=== PATIENT | female | born 1975 | race Caucasian/White ===

== ENCOUNTER 2020-05-09 08:45 | Emergency (ER) | payer BC, OTHER, SELFPAY ==
--- NOTE | 2020-05-09 08:47 | ED.URI ---
HPI - URI/Sore Throat General Chief Complaint: Upper Respiratory Infection Stated Complaint: sore throat Time Seen by Provider: 05/09/20 08:59 Source: patient and RN notes reviewed Mode of arrival: ambulatory Limitations: no limitations History of Present Illness HPI Narrative: 43-year-old female presents with concern for sore throat that started yesterday. Reports sore throat started yesterday, today she noticed tonsils were more swollen with white patches. She denies fever, headache, body aches, rhinorrhea, nasal congestion, postnasal drainage, cough, shortness of breath. Denies any sick contacts MD elicited complaint: sore throat Related Data Home Medications Medication Instructions Recorded Confirmed No Home Medications 05/09/20 05/09/20 Allergies Allergy/AdvReac Type Severity Reaction Status Date / Time amoxicillin Allergy Mild Hives Verified 05/09/20 08:59 Review of Systems Review of Systems: Narrative: CONSTITUTIONAL: Denies malaise, chills, sweats, or fever. EYES: Denies visual changes, redness, or discharge. ENT: Denies rhinorrhea, congestion, sinus pain, otalgia. Reports sore throat. CARDIOVASCULAR: Denies chest pain, palpitations, or edema. RESPIRATORY: Denies cough or dyspnea. GASTROINTESTINAL: Denies abdominal pain, nausea, vomiting, diarrhea SKIN: Denies rash or itching. MUSCULOSKELETAL: Denies myalgia. NEUROLOGIC: Denies headache. All systems reviewed & are unremarkable except as noted in HPI and below PMFSH Comments At time of signature, agree with nursing past medical, surgical, social and family history. There is no relevant family history pertinent to the presenting complaint Exam Narrative: Exam Narrative: GENERAL: Well-appearing, well-nourished, and in no acute distress. HEAD: Normocephalic EYES: PERRLA, conjunctivae clear ENT: Nares clear, turbinates pink, no discharge. Mucous membranes moist. TM pearly leger with dull light reflex bilaterally; no tragal tenderness. Oropharynx erythematous without lesions. Tonsils enlarged and with copious exudate, no drooling, no hoarseness, no trismus, uvula midline. NECK: Supple. No lymphadenopathy CHEST: Clear to auscultation, breath sounds equal. No wheezing, rhonchi, rales, or stridor. No respiratory distress, speaks in full sentences. HEART: Regular rate and rhythm. No murmur heard. SKIN: Warm, dry, no rash. NEURO: Alert and oriented x3. PSYCH: Normal mood and affect Course Course Emergency Course: Patient is aware of diagnosis, understands and agrees to treatment plan. Anticipatory guidance given. Patient agrees to follow-up as directed and is aware of reasons to seek care at the emergency department. Portions of this record may have been created with voice recognition software Vital Signs Vital signs: Vital Signs Temperature 97.9 F 05/09/20 08:57 Pulse Rate 92 05/09/20 08:57 Respiratory Rate 16 05/09/20 08:57 Blood Pressure 124/72 05/09/20 08:57 Pulse Oximetry 99 05/09/20 08:57 Temperature 97.9 F 05/09/20 08:57 Pulse Rate 92 05/09/20 08:57 Respiratory Rate 16 05/09/20 08:57 Blood Pressure 124/72 05/09/20 08:57 Pulse Oximetry 99 05/09/20 08:57 Reviewed. MDM - URI/Sore Throat MDM Narrative Medical decision making narrative: Differential diagnosis considered: Cota virus, strep pharyngitis, allergic rhinitis, upper respiratory tract infection, sinusitis, rhinosinusitis, nasopharyngitis. viral pharyngitis, otitis media, otitis externa, pneumonia, bronchitis, viral cough syndrome, viral syndrome, and influenza. Exam findings show no acute concerns or changes; patient is non-toxic appearing and is in no distress. Patient is appropriate for outpatient treatment and follow-up. Lab Data Attestation: I reviewed the patient's lab results. Labs: Strep Screen Presumptive Negative *(Reference Range: Negative)* Critical Care Time Critical Care Time Critical Care Time: No Discharge P
[2020-05-09 08:57] VITALS: BP 124/72; PULSE 92; RESP 16; TEMP 36.6; O2SAT 99
== END 2020-05-09 09:36 | disposition home or self-care (01) ==
PROVIDERS: Emergency Provider Nurse Practitioner; PCP Family Medicine Adolescent Medicine
DX: J03.90 Acute tonsillitis, unspecified (principal)
CPT/HCPCS: 87081; 87147; 87880; 99213; G0463

== ENCOUNTER 2020-09-07 11:55 | Inpatient (IN) | payer BC, OTHER, SELFPAY ==
[2020-09-07] VITALS (24 sets, daily range): BP systolic 104–119; BP diastolic 59–70; PULSE 73–110; RESP 18–35; TEMP 35.7–36.5; O2SAT 90–99
--- NOTE | ~2020-09-07 | CT_ITS ---
EXAMINATION: CTA chest PE protocol EXAM DATE: 09/07/2020 13:27 INDICATION: Shortness of breath, hemoptysis. COVID positive. TECHNIQUE: Spiral CTA of the chest (pulmonary arteries) was performed with 100 cc Omnipaque 350 intr avenous contrast injection. Images were acquired during the pulmonary arterial phase. Coronal maxi mum intensity projection 3D-reconstructions were created by the technologist on dedicated workstation . Axial, coronal and sagittal reformatted images were reviewed. The dose-length product (DLP) for t his examination was 421.80 mGy-cm. The exposure was tailored according to patient size (auto mA exp osure control), and iterative reconstruction (ASIR) was used as additional dose reduction technique. There is no prior study for comparison. FINDINGS: Pulmonary arteries are well opacified and without intraluminal filling defects. No thora cic aortic dissection. Moderate amount of patchy ill-defined bilateral acute airspace disease, appea navya is consistent with COVID 19 pneumonia. There are no pleural or pericardial effusions. Trache obronchial tree is patent. There is no mediastinal, hilar or axillary lymphadenopathy. There is n o pneumothorax. Heart normal in size. No evidence of coronary arterial calcification. Upper abdo men is unremarkable. There is thoracic spondylosis without osteoblastic or osteolytic lesions ident ified. IMPRESSION: 1. Moderate amount of bilateral acute airspace disease appearance consistent with COVID pneumonia. 2. No pulmonary emboli. Reviewed, dictated and finalized at location B. IT[employer]ER IMPRESSION: 1. Moderate amount of bilateral acute airspace disease appearance consistent w ith COVID pneumonia. 2. No pulmonary emboli.
--- NOTE | 2020-09-07 12:31 | ECG_ITS ---
Measurements Intervals [place] Rate: 100 P: 16 MI: 148 QRS: -15 QRSD: 87 T: -9 QT: 313 QTc: 404 Interpretive Statements SINUS TACHYCARDIA DELAYED PRECORDIAL R/S TRANSITION VOLTAGE CRITERIA FOR LVH BORDERLINE T WAVE ABNORMALITY- ANTEROLAT/INF LEADS BORDERLINE ECG Electronically Signed On 09-07-2020 13:02:08 DEFENSIVE SECONDARY COACH by Sagar Sapp D.O.
--- NOTE | 2020-09-07 12:31 | ED.SOB ---
HPI - SOB/Dyspnea General Chief Complaint: Shortness of Breath/Dyspnea Stated Complaint: covid/cough Time Seen by Provider: 09/07/20 12:25 Source: patient Mode of arrival: ambulatory Limitations: no limitations History of Present Illness HPI Narrative: Patient is a 44-year-old female complaining of coughing up blood accompanied by shortness of breath, subjective fever, body aches for the past couple days. patient states that she tested positive for Covid on September 04. Patient denies any hematemesis, melena, hematochezia or hematuria. Patient denies any chest pain, abdominal pain, nausea, vomiting, or diarrhea. Related Data Home Medications Medication Instructions Recorded Confirmed levofloxacin [Levaquin] 500 mg PO DAILY 09/07/20 Allergies Allergy/AdvReac Type Severity Reaction Status Date / Time amoxicillin Allergy Mild Hives Verified 09/07/20 12:25 Review of Systems Review of Systems: All systems reviewed & are unremarkable except as noted in HPI and below Constitutional: Constitutional: Denies excessive sweating, Denies fatigue, Denies headache(s), Denies lethargy, Denies malaise, Denies weakness and Denies weight loss Eyes: Eyes: Denies blurry vision, Denies change in vision and Denies loss of vision ENT: Denies dizziness, Denies ear discharge, Denies headache(s), Denies lip swelling, Denies epistaxis, Denies nasal congestion, Denies neck pain, Denies throat swelling and Denies tongue swelling Cardiovascular: Cardiovascular: Denies chest pain, Denies chest pain at rest, Denies chest pain with activity, Denies diaphoresis, Denies rapid heart rate, Denies edema, Denies irregular heart rhythm, Denies lightheadedness, Denies palpitations, Denies dyspnea and Denies dyspnea on exertion Respiratory: Respiratory: Denies chest congestion, Reports dyspnea and Denies dyspnea on exertion Gastrointestinal: Gastrointestinal: Denies abdominal pain, Denies melena, Denies hematochezia, Denies diarrhea, Denies nausea, Denies vomiting and Denies hematemesis Musculoskeletal: Musculoskeletal: Denies abnormal gait, Denies deformity, Denies joint swelling, Denies limited range of motion, Denies neck pain and Denies numbness Neurologic: Denies Abnormal speech present, Denies abnormal gait, Denies confusion, Denies dizziness, Denies headache(s), Denies focal weakness, Denies loss of vision, Denies numbness, Denies Other visual disturbances, Denies Sensory deficit (Neuro) and Denies weakness Psychiatric: Psychiatric: Denies confusion, Denies depression, Denies auditory hallucinations, Denies homicidal ideation and Denies suicidal ideation Endocrine: Endocrine: Denies cold intolerance, Denies excessive sweating, Denies fatigue, Denies heat intolerance and Denies palpitations Hematologic/Lymphatic: Hematologic/Lymphatic: Denies easy bleeding and Denies easy bruising Allergic/Immunologic: Allergic/Immunologic: Denies lip swelling, Denies throat swelling and Denies tongue swelling Exam Const: General: cooperative, healthy appearing, comfortable, no acute distress, well developed, alert and awake; No confusion Orientation/consciousness: oriented to person, oriented to place, oriented to time, patient oriented x3 and No confusion Limitations: no limitations HENMT: Head: normal to inspection, normocephalic and atraumatic Ears: hearing grossly normal bilaterally, TM normal on the right and TM normal on the left General nose exam: Normal external nose present, Normal nares present and No nasal discharge present Face and sinus: normal facial exam Mouth: Yes Normal oral and palatal mucosa present, Yes lip normal, Yes tongue normal and Yes oropharynx normal Throat: posterior oropharynx normal, tonsils normal and uvula midline Eyes: General: appearance normal, both eyes and all related structures Pupils: Equal, round and reactive pupils present EOM: EOMs intact bilaterally Neck: Neck: normal visual inspection, full ROM, no lymphadenopathy and no men
[2020-09-07] MEDS: SODIUM CHLORIDE 0.9% IV 1,000 ML 999 ML IV CONT (12:53)
[2020-09-07 13:00] LABS: Basophils Percent Auto 0.2 % (0.2-1.2); Hematocrit 40.4 % (37.0-47.0); Hemoglobin 13.7 g/dL (12.0-15.0); Immature Granulocyte Absolute 0.06 K/mm3 (0.00-0.031); Immature Granulocyte Percent A 0.5 % (0-0.5); Lymphocytes Absolute Auto 1.38 K/mm3 (0.9-3.2); Lymphocytes Percent Auto 12.4 % (18.3-44.2); Mean Corpuscular HGB Conc 33.9 g/dl (32-36); Mean Corpuscular Hemoglobin 29.7 pg (26-34); Mean Corpuscular Volume 87.6 fl (80-100); Mean Platelet Volume 8.8 fl (7.4-10.4); Monocytes Absolute Auto 0.5 K/mm3 (0.1-0.6); Monocytes Percent Auto 4.3 % (2.6-8.5); Neutrophils Absolute Auto 9.2 K/mm3 (1.3-6.7); Neutrophils Percent Auto 82.6 % (45.5-73.1); Platelet Count Result 232 k/mm3 (150-375); Red Blood Count 4.61 M/mm3 (4.2-5.4); White Blood Count 11.2 K/mm3 (4.5-10.0)
[2020-09-07 13:08] LABS: D Dimer 0.46 ug/mL (<0.48)
[2020-09-07 13:12] LABS: Alanine Aminotransferase 44 U/L (4-35); Albumin Level 4.1 g/dL (3.5-5.1); Alkaline Phosphatase 103 U/L (38-126); Anion Gap 8 mmol/L (8-16); Aspartate Amino Transferase 44 U/L (14-36); Bilirubin,Total 0.9 mg/dL (0.2-1.3); Blood Urea Nitrogen 13 mg/dL (7-17); Calcium 8.4 mg/dL (8.4-10.2); Carbon Dioxide 25 mmol/L (22-30); Chloride 103 mmol/L (98-107); Estimated CRCL calculation 71 ml/min; Estimated Glomerular Filt Rate > 60; Glucose 104 mg/dL (65-105); Potassium 3.8 mmol/L (3.4-5.0); Sodium 136 mmol/L (137-145)
[2020-09-07 13:22] LABS: Troponin I < 0.012 ng/mL (0.000-0.034)
[2020-09-07 14:34] LABS: Alveolar/Arterial O2 Gradient 52.1 mmHg; Base Excess ABG -2.1 mEq/l (+/-2.0); Carboxyhemoglobin 0.4 % THb (0-2.0); Device ROOM AIR; Fractional Inspired Oxygen 21 %; HCO3 ABG 21.4 mEq/l (22.0-26.0); Methemoglobin ABG 0.2 %THb (0-1.5); Modified Allen's Test Pass; Oxygen Content ABG 16.4 %vol (16.0-22.0); Oxygen Saturation ABG 91.2 % (95.0-100.0); Oxyhemoglobin 89.8 % THb (90.0-100.0); PCO2 ABG 33.1 mmHg (35.0-45.0); PO2 FiO2 Ratio Arterial Blood 2.76 %; Reduced Hemoglobin 9.6 %THb (0-5.0); Site Drawn RIGHT RADIAL; pH ABG 7.429 (7.350-7.450)
--- NOTE | 2020-09-07 19:30 | PM.IMHP ---
H&P: HPI History of Present Illness Date/Time: 09/07/20 19:30 Chief Complaint: Shortness of breath, hemoptysis. Narrative: This is a 44-year-old female presented to the emergency department earlier today via private vehicle from for evaluation of shortness of breath and hemoptysis. She has not been feeling well for about 10 days with symptoms to include chest congestion, dry cough, fever, and body aches. She was started on an antibiotic for possible pneumonia but eventually tested positive for COVID-19 on September 04, 2020. Over the last day or so her cough has been productive of pinkish colored phlegm and she decided to come in today when her pulse oximeter was hovering around 89%. She is no longer having fevers. No anosmia and dysgeusia. She denies nausea, vomiting, and diarrhea. No chest pain or pleuritic pain. Review of Systems Review of Systems: Narrative: Twelve systems were reviewed with pertinent positives and negatives as per HPI. Except as documented, all other systems were reviewed and are negative. [facility] Past Medical History Medical History (Updated 09/08/20 @ 14:12 by Deepthi Pride PA-C) Bronchitis COVID-19 (~08/2020) Surgical History Surgical History (Updated 09/07/20 @ 18:22 by Deepthi Pride PA-C) History of appendectomy History of laparoscopic cholecystectomy (~05/2006) History of shoulder surgery (~06/2002) History of tubal ligation Family History Family History Father Cancer Social History Social History (Updated 09/08/20 @ 14:13 by Deepthi Pride PA-C) Social History: Lives in [place] with her 18-year-old son. She works at the [employer] in [place]. Lifelong nonsmoker. Drinks perhaps 2 alcoholic beverages a week. No illicit substance use. she designates her boyfriend, Twan Rivers, as her surrogate decision maker and she wishes to be a full code. Spiritual care concerns: No Meds Home Medications and Allergies Home Medications Medication Instructions Recorded Confirmed Type levofloxacin [Levaquin] 500 mg PO DAILY 09/07/20 09/08/20 History Allergies Allergy/AdvReac Type Severity Reaction Status Date / Time amoxicillin Allergy Mild Hives Verified 09/07/20 12:25 Vital Signs Vital Signs - 24 hr 09/07/20 11:58 09/07/20 12:20 09/07/20 12:27 Temperature 97.7 F Pulse Rate 107 H 102 H 100 Respiratory Rate 20 32 H Blood Pressure 119/60 Pulse Oximetry 91 92 09/07/20 12:30 09/07/20 12:31 09/07/20 12:48 Temperature Pulse Rate 106 H 106 H 110 H Respiratory Rate 30 H 23 H 33 H Blood Pressure 108/68 Pulse Oximetry 92 09/07/20 13:30 09/07/20 13:31 09/07/20 14:00 Temperature Pulse Rate 96 96 Respiratory Rate 35 H 32 H Blood Pressure 116/69 Pulse Oximetry 91 90 98 09/07/20 15:07 09/07/20 15:15 09/07/20 15:16 Temperature Pulse Rate 86 85 88 Respiratory Rate 31 H 30 H 28 H Blood Pressure 113/69 Pulse Oximetry 97 97 97 09/07/20 15:36 09/07/20 15:45 09/07/20 15:46 Temperature Pulse Rate 92 90 92 Respiratory Rate 28 H 27 H 20 Blood Pressure 104/59 L Pulse Oximetry 99 97 98 09/07/20 16:02 09/07/20 16:15 09/07/20 16:16 Temperature Pulse Rate 88 90 87 Respiratory Rate 28 H 30 H 27 H Blood Pressure 114/69 Pulse Oximetry 98 98 98 09/07/20 16:30 09/07/20 17:06 09/07/20 17:57 Temperature Pulse Rate 79 74 73 Respiratory Rate 28 H 29 H 20 Blood Pressure 114/70 Pulse Oximetry 98 98 98 Exam Narrative: Exam Narrative: General: Mildly ill-appearing female sitting up in bed in no distress. Frequent dry cough. Weight: 77.1 kg. BMI: 25.8. HEENT: Normocephalic, atraumatic. PERRL, EOMI. Sclerae anicteric. Oral mucosa moist. Oropharynx clear. Neck: Supple. No JVD. Respiratory: Respirations are even and nonlabored. Coarse breath sounds at the bases. Cardiovascular: Regular rate and rhythm with S1-S2. Gastr
[2020-09-07 23:16] LABS: Troponin I < 0.012 ng/mL (0.000-0.034)
[2020-09-08] VITALS (7 sets, daily range): BP systolic 97–114; BP diastolic 53–58; PULSE 66–90; RESP 16–20; TEMP 36.1–37; O2SAT 92–95
[2020-09-08 00:54] LABS: Alanine Aminotransferase 39 U/L (4-35)
[2020-09-08] MEDS: REMDESIVIR 200 MG/NS 250 ML 200 MG/250 ML BAG 250 MG IVPB (01:52)
[2020-09-08 06:37] LABS: Hematocrit 36.7 % (37.0-47.0); Hemoglobin 12.2 g/dL (12.0-15.0); Mean Corpuscular HGB Conc 33.2 g/dl (32-36); Mean Corpuscular Hemoglobin 29.5 pg (26-34); Mean Corpuscular Volume 88.9 fl (80-100); Mean Platelet Volume 8.9 fl (7.4-10.4); Platelet Count Result 246 k/mm3 (150-375); Red Blood Count 4.13 M/mm3 (4.2-5.4); Red Cell Distribution Width 13.9 % (11.5-14.5); White Blood Count 10.4 K/mm3 (4.5-10.0)
[2020-09-08 06:56] LABS: Alanine Aminotransferase 34 U/L (4-35); Albumin Level 3.7 g/dL (3.5-5.1); Alkaline Phosphatase 85 U/L (38-126); Anion Gap 7 mmol/L (8-16); Aspartate Amino Transferase 26 U/L (14-36); Bilirubin,Total 0.6 mg/dL (0.2-1.3); Blood Urea Nitrogen 11 mg/dL (7-17); CRP 4.7 mg/dL (<1.0); Calcium 8.4 mg/dL (8.4-10.2); Carbon Dioxide 26 mmol/L (22-30); Chloride 105 mmol/L (98-107); Estimated CRCL calculation 90 ml/min; Estimated Glomerular Filt Rate > 60; Glucose 172 mg/dL (65-105); Lactate Dehydrogenase 651 U/L (313-618); Potassium 3.6 mmol/L (3.4-5.0); Sodium 138 mmol/L (137-145)
[2020-09-08] MEDS: DEXAMETHASONE 2 MG TABLET 6 MG PO (08:58)
--- NOTE | 2020-09-08 14:31 | PM.IMPN ---
Progress Note: A&P Assessment and Plan (1) Pneumonia due to 2019 novel coronavirus: Code(s): U07.1 - COVID-19; J12.82 - Pneumonia due to coronavirus disease 2019 Status: Acute Assessment and Plan: Patient presents with worsening shortness of breath; CTA chest shows moderate MIKAEL airspace disease, no PE; COVID positive 09/04/20. Continue dexamethasone (day 2); remdesivir (day 2). Continue supplemental O2 and wean as tolerated to keep O2 saturations > 90%. Stable on 2L today. Continue supportive care with Tylenol for fevers, albuterol MDI, Robitussin, incentive spirometer, supplementation of Zinc, vitamins C and D. Lovenox BID for DVT ppx. (2) Acute hypoxemic respiratory failure: Code(s): J96.01 - Acute respiratory failure with hypoxia Status: Acute Assessment and Plan: Secondary to COVID. See above. Subjective Date/time seen: 09/08/20 1345 Interval history: Ms. Elkins is a pleasant 44yo F admitted for acute respiratory failure secondary to COVID. She reports feeling a bit better now that she has been on oxygen. She reports shortness of breath is mildly improved and breathing is a bit more comfortable when she's lying prone. She denies chest pain. Appetite is fair. Denies nausea, vomiting or abdominal pain. Taste and smell still intact. Review of Systems Review of Systems: All systems reviewed & are unremarkable except as noted in HPI and below Exam Narrative: Exam Narrative: General: Female resting prone in bed in no acute respiratory distress. HEENT: Normocephalic, EOMI, oral mucosa moist. Cardiovascular: Rate and rhythm are regular. Respiratory: Decreased breath sounds MIKAEL. Respirations even and non-labored. Tolerating 2L/min nasal cannula. Abdomen: Soft, non-tender, non-distended, bowel sounds present. Extremities: Peripheral pulses intact. No edema or pain to palpation. Neuro: No focal neurological deficits. Speech is clear. Objective Data Vital Signs Vital Signs: Last Vital Signs Temp 97.0 F L 09/08/20 16:00 Pulse 90 09/08/20 16:00 Resp 20 09/08/20 16:00 BP 114/58 L 09/08/20 16:00 Pulse Ox 94 09/08/20 16:00 Intake/Output Intake/Output: Intake & Output 09/05/20 09/06/20 09/07/20 09/08/20 23:59 23:59 23:59 23:59 Intake Total 1000 1630 Output Total 900 Balance 1000 730 Meds/Results Medications: Active Medications Generic Name Dose Route Start Last Admin Trade Name Freq PRN Reason Stop Dose Admin Acetaminophen 650 mg 09/08/20 13:38 Acetaminophen 325 Mg Tablet PO Q4H PRN Pain or Fever Dexamethasone 6 mg 09/08/20 08:00 09/08/20 08:58 Dexamethasone 2 Mg Tablet PO 09/17/20 08:01 6 mg DAILY@0800 [facility] Administration Guaifenesin/Dextromethorphan 5 ml 09/08/20 00:27 Guaifenesin/Dextromethorphan 10 Ml Udc PO Q4H PRN Cough Remdesivir 100 mg in 250 mls @ 250 mls/hr 09/09/20 22:00 IVPB 09/12/20 22:01 Q24H ANDREY Ondansetron HCl 4 mg 09/08/20 13:38 Ondansetron Inj 4 Mg/2 Ml Vial IV PUSH Q6H PRN Nausea And Vomiting Radiology Results: ITS Impressions Chest CTA 09/07/20 13:29 IMPRESSION: 1. Moderate amount of bilateral acute airspace disease appearance consistent with COVID pneumonia. 2. No pulmonary emboli. Labs Labs: Laboratory Tests 09/08/20 05:57 09/08/20 05:57 Quality VTE Prophylaxis VTE prophylaxis: pharmacologic ordered (Lovenox BID)
[2020-09-08] MEDS: ASCORBIC ACID 500 MG TABLET PO (15:18)
[2020-09-08] MEDS: CHOLECALCIFEROL 1,000 UNITS TABLET 1000 UNITS PO (15:18)
[2020-09-08] MEDS: ZINC SULFATE 220 MG CAPSULE PO (15:18)
[2020-09-08] MEDS: ENOXAPARIN 40 MG/0.4 ML SYRINGE SUB-Q (21:43)
[2020-09-08] MEDS: REMDESIVIR 100 MG/NS 250 ML 100 MG/250 ML BAG 250 MG IVPB (21:44)
[2020-09-09] VITALS (7 sets, daily range): BP systolic 92–100; BP diastolic 52–61; PULSE 56–68; RESP 16–20; TEMP 36–36.6; O2SAT 94–99
[2020-09-09 06:44] LABS: Basophils Percent Auto 0.1 % (0.2-1.2); Eosinophils Percent Auto 0.1 % (0-4.4); Hematocrit 35.1 % (37.0-47.0); Hemoglobin 11.7 g/dL (12.0-15.0); Immature Granulocyte Absolute 0.08 K/mm3 (0.00-0.031); Lymphocytes Absolute Auto 1.84 K/mm3 (0.9-3.2); Lymphocytes Percent Auto 23.1 % (18.3-44.2); Mean Corpuscular HGB Conc 33.3 g/dl (32-36); Mean Corpuscular Hemoglobin 29.8 pg (26-34); Mean Corpuscular Volume 89.3 fl (80-100); Mean Platelet Volume 9.1 fl (7.4-10.4); Monocytes Absolute Auto 0.7 K/mm3 (0.1-0.6); Monocytes Percent Auto 8.9 % (2.6-8.5); Neutrophils Absolute Auto 5.3 K/mm3 (1.3-6.7); Neutrophils Percent Auto 66.8 % (45.5-73.1); Platelet Count Result 272 k/mm3 (150-375); Red Blood Count 3.93 M/mm3 (4.2-5.4); Red Cell Distribution Width 13.9 % (11.5-14.5)
[2020-09-09 07:48] LABS: Alanine Aminotransferase 28 U/L (4-35); Albumin Level 3.5 g/dL (3.5-5.1); Alkaline Phosphatase 71 U/L (38-126); Anion Gap 4 mmol/L (8-16); Aspartate Amino Transferase 27 U/L (14-36); Bilirubin,Total 0.4 mg/dL (0.2-1.3); Blood Urea Nitrogen 14 mg/dL (7-17); CRP 2.8 mg/dL (<1.0); Calcium 8.5 mg/dL (8.4-10.2); Carbon Dioxide 28 mmol/L (22-30); Chloride 108 mmol/L (98-107); Estimated CRCL calculation 80 ml/min; Estimated Glomerular Filt Rate > 60; Glucose 92 mg/dL (65-105); Magnesium 2.3 mg/dL (1.6-2.3); Potassium 3.5 mmol/L (3.4-5.0); Sodium 140 mmol/L (137-145)
[2020-09-09] MEDS: DEXAMETHASONE 2 MG TABLET 6 MG PO (07:54)
[2020-09-09] MEDS: ENOXAPARIN 40 MG/0.4 ML SYRINGE SUB-Q ×2 (09:40→21:35)
[2020-09-09] MEDS: ASCORBIC ACID 500 MG TABLET PO (09:40)
[2020-09-09] MEDS: ZINC SULFATE 220 MG CAPSULE PO (09:40)
[2020-09-09] MEDS: CHOLECALCIFEROL 1,000 UNITS TABLET 1000 UNITS PO (09:40)
--- NOTE | 2020-09-09 13:31 | PM.IMPN ---
Progress Note: A&P Assessment and Plan (1) Pneumonia due to 2019 novel coronavirus: Code(s): U07.1 - COVID-19; J12.82 - Pneumonia due to coronavirus disease 2019 Status: Acute Assessment and Plan: Patient presents with worsening shortness of breath; CTA chest shows moderate MIKAEL airspace disease, no PE; COVID positive 09/04/20. Continue dexamethasone (day 3); remdesivir (day 3). Continue supplemental O2 and wean as tolerated to keep O2 saturations > 90%. Stable on 2L today with good saturations, discussed with RN to try weaning O2 if possible today. Continue supportive care with Tylenol for fevers, albuterol MDI, Robitussin, incentive spirometer, supplementation of Zinc, vitamins C and D. Lovenox BID for DVT ppx. (2) Acute hypoxemic respiratory failure: Code(s): J96.01 - Acute respiratory failure with hypoxia Status: Acute Assessment and Plan: Secondary to COVID. See above. Subjective Date/time seen: 09/09/20 1245 Interval history: Ms. Elkins is a pleasant 44yo F admitted for acute respiratory failure secondary to COVID. She feels overall a little bit better than yesterday, shortness of breath about the same. Nonproductive cough. Slept in prone position mostly all night, slept well. Denies chest pain, nausea, vomiting, or abdominal pain. Review of Systems Review of Systems: All systems reviewed & are unremarkable except as noted in HPI and below Exam Narrative: Exam Narrative: General: Female sitting up in bedside chair in no acute respiratory distress. HEENT: Normocephalic, EOMI, oral mucosa moist. Cardiovascular: Rate and rhythm are regular. Respiratory: Decreased breath sounds MIKAEL. Respirations even and non-labored. Tolerating 2L/min nasal cannula. Abdomen: Soft, non-tender, non-distended, bowel sounds present. Extremities: Peripheral pulses intact. No edema or pain to palpation. Neuro: No focal neurological deficits. Speech is clear. Objective Data Vital Signs Vital Signs: Last Vital Signs Temp 96.8 F L 09/09/20 16:00 Pulse 67 09/09/20 16:00 Resp 18 09/09/20 16:00 BP 99/58 L 09/09/20 16:00 Pulse Ox 96 09/09/20 16:00 Intake/Output Intake/Output: Intake & Output 09/06/20 09/07/20 09/08/20 09/09/20 23:59 23:59 23:59 23:59 Intake Total 1000 2670 690 Output Total 900 750 Balance 1000 1770 -60 Meds/Results Medications: Active Medications Generic Name Dose Route Start Last Admin Trade Name Freq PRN Reason Stop Dose Admin Acetaminophen 650 mg 09/08/20 13:38 Acetaminophen 325 Mg Tablet PO Q4H PRN Pain or Fever Albuterol 2 puff 09/08/20 18:05 Albuterol Sulfate (*Sp) Aerosol 1 Puff INHALATION QIDRT PRN Shortness Of Breath Ascorbic Acid 500 mg 09/08/20 14:35 09/09/20 09:40 Ascorbic Acid 500 Mg Tablet PO 500 mg DAILY ANDREY Administration Dexamethasone 6 mg 09/08/20 08:00 09/09/20 07:54 Dexamethasone 2 Mg Tablet PO 09/17/20 08:01 6 mg DAILY@0800 ANDREY Administration Enoxaparin Sodium 40 mg 09/08/20 21:00 09/09/20 09:40 Enoxaparin 40 Mg/0.4 Ml Syringe SUB-Q 40 mg Q12HR ANDREY Administration Guaifenesin/Dextromethorphan 5 ml 09/08/20 00:27 Guaifenesin/Dextromethorphan 10 Ml Udc PO Q4H PRN Cough Remdesivir 100 mg in 250 mls @ 250 mls/hr 09/08/20 22:00 09/08/20 22:44 IVPB 09/11/20 23:01 Infused Q24H ANDREY Infusion Ondansetron HCl 4 mg 09/08/20 13:38 Ondansetron Inj 4 Mg/2 Ml Vial IV PUSH Q6H PRN Nausea And Vomiting Vitamin D 1,000 units 09/08/20 14:35 09/09/20 09:40 Cholecalciferol 1,000 Units Tablet PO 1,000 units DAILY ANDREY Administration Zinc Sulfate 220 mg 09/08/20 14:35 09/09/20 09:40 Zinc Sulfate 220 Mg Capsule PO 220 mg QAM ANDREY Administration Radiology Results: ITS Impressions Chest CTA 09/07/20 13:29 IMPRESSION: 1. M
[2020-09-09] MEDS: REMDESIVIR 100 MG/NS 250 ML 100 MG/250 ML BAG 250 MG IVPB (21:35)
[2020-09-10] VITALS: BP 120/68; PULSE 77; RESP 16; TEMP 36.2; O2SAT 97
[2020-09-10 04:00] VITALS: BP 94/54; PULSE 81; RESP 18; TEMP 36.3; O2SAT 94
[2020-09-10 06:31] LABS: Alanine Aminotransferase 24 U/L (4-35)
[2020-09-10 08:00] VITALS: BP 92/51; PULSE 64; RESP 18; TEMP 35.9; O2SAT 95; O2SAT 97
[2020-09-10 09:06] VITALS: O2SAT 97
[2020-09-10] MEDS: ENOXAPARIN 40 MG/0.4 ML SYRINGE SUB-Q (09:23)
[2020-09-10] MEDS: ASCORBIC ACID 500 MG TABLET PO (09:24)
[2020-09-10] MEDS: DEXAMETHASONE 2 MG TABLET 6 MG PO (09:24)
[2020-09-10] MEDS: CHOLECALCIFEROL 1,000 UNITS TABLET 1000 UNITS PO (09:24)
[2020-09-10] MEDS: ZINC SULFATE 220 MG CAPSULE PO (09:24)
[2020-09-10 12:00] VITALS: BP 102/57; PULSE 80; RESP 16; TEMP 35.7; O2SAT 98
--- NOTE | 2020-09-10 14:45 | PM.DS ---
DS: Admitting Diagnosis Admitting Diagnosis Admitting Diagnosis: Acute respiratory failure with hypoxia DS: Discharge Diagnosis Discharge Diagnosis (1) Pneumonia due to 2019 novel coronavirus: Code(s): U07.1 - COVID-19; J12.82 - Pneumonia due to coronavirus disease 2019 Status: Acute Assessment and Plan: Date of Admission 09/07/20 Date of Discharge/DOS 09/10/20 Ms. Elkins is a pleasant 44yo previously healthy female who presented to the ED for evaluation of worsening shortness of breath and hemoptysis after testing positive for COVID-19 on 09/04/20. She was found to be hypoxic and started on supplemental oxygen at 2L/min. CTA chest demonstrates bilateral pneumonia without evidence of pulmonary embolism. She was treated with 4 days of dexamethasone and 4 days of remdesivir along with supportive care outlined below. Day prior to discharge, her supplemental oxygen was weaned down to room air and she was monitored overnight. Day of discharge she continued to have adequate oxygen saturations without oxygen and she felt prepared for discharge. Hemoptysis resolved. Her shortness of breath was also improved. She was hemodynamically stable for discharge home on 09/10/20 with instructions to monitor her symptoms closely at home and follow up with PCP. Patient presents with worsening shortness of breath; CTA chest shows moderate MIKAEL airspace disease, no PE; COVID positive 09/04/20. Continue dexamethasone (day 4); remdesivir (day 4). Treated with supportive care with Tylenol for fevers, albuterol MDI, Robitussin, incentive spirometer, supplementation of Zinc, vitamins C and D, Lovenox BID for DVT ppx. (2) Acute hypoxemic respiratory failure: Code(s): J96.01 - Acute respiratory failure with hypoxia Status: Resolved Assessment and Plan: Secondary to COVID. See above. DS: Summary Hospital Course Hospital Course: See above. Time Spent with Patient Time attestation: Total time spent providing and/or coordinating discharge services: 35 minutes Exam Narrative: Exam Narrative: General: Female sitting up in bedside chair in no acute respiratory distress. HEENT: Normocephalic, EOMI, oral mucosa moist. Cardiovascular: Rate and rhythm are regular. Respiratory: Decreased breath sounds MIKAEL. Respirations even and non-labored. Tolerating room air. Abdomen: Soft, non-tender, non-distended, bowel sounds present. Extremities: Peripheral pulses intact. No edema or pain to palpation. Neuro: No focal neurological deficits. Speech is clear. DS: Data Data Completed and Pending Labs on day of discharge: Last Vital Signs Temp 97.1 F L 09/10/20 16:00 Pulse 68 09/10/20 16:00 Resp 16 09/10/20 16:00 BP 92/55 L 09/10/20 16:00 Pulse Ox 99 09/10/20 16:00 ITS Impressions Chest CTA 09/07/20 13:29 IMPRESSION: 1. Moderate amount of bilateral acute airspace disease appearance consistent with COVID pneumonia. 2. No pulmonary emboli. Laboratory Tests 09/09/20 06:24 09/09/20 06:24 Discharge Plan Discharge Attending physician on discharge: Daniel Denise Discharging Clinician: Joan Mcgowan Anticipated Discharge Date/Time: 09/10/20 19:00 Patient Disposition: Home, Self-Care Activity: as tolerated Diet: as tolerated Discharge Instructions: Call your primary care provider to schedule a hospital follow up appointment within 1 week. This may be a phone call visit to help limit exposure to the virus. You can use your pulse oximeter at home to monitor your oxygen saturations. Adequate saturations would be greater than 90%. If you see saturations less than 90%, sit down and rest and take deep breaths for several minutes. If saturations come back up above 90%, continue to monitor and try to avoid overexerting yourself. If oxygen saturations stay
[2020-09-10 16:00] VITALS: BP 92/55; PULSE 68; RESP 16; TEMP 36.2; O2SAT 99
== END 2020-09-10 07:20 | disposition home or self-care (01) | DRG 177 ==
LOC: ANHED 15:20 → ANH3MEDSUR 16:12
PROVIDERS: Physician Assistant; Admitting Provider Family Medicine; Emergency Provider Emergency Medicine; PCP Family Medicine Adolescent Medicine; Visit Provider Internal Medicine
DX: U07.1 COVID-19 (principal); J12.82 Pneumonia due to coronavirus disease 2019; J96.01 Acute respiratory failure with hypoxia
CPT/HCPCS: 36415; 36600; 71275; 80053; 82375; 82728; 82805; 83050; 83615; 83735; 84460; 84484; 85025; 85027; 85380; 86140; 93005; 96361; 96365; 96372; 99285; A9270; G0378; J1100; J1650; J7030; J8540; Q9967

== ENCOUNTER 2022-03-18 10:21 | Emergency (ER) | payer OTHER, SELFPAY ==
[2022-03-18 10:33] VITALS: BP 141/76; PULSE 105; RESP 16; TEMP 37.4; O2SAT 100
--- NOTE | 2022-03-18 10:48 | ED.URI ---
HPI - URI/Sore Throat General Chief Complaint: Upper Respiratory Infection Stated Complaint: Sore Throat Time Seen by Provider: 03/18/22 10:45 Source: patient Mode of arrival: ambulatory Limitations: no limitations History of Present Illness HPI Narrative: Ms. Britton is a 46-year-old female patient presenting to the clinic today with complaints of a sore throat since . States that it started as a tickle and it is now gotten worse where she is having pain with swallowing. She denies any cough or nasal congestion. She denies any fever or chills. She denies any body aches. She denies any known exposure to anybody with COVID or strep. MD elicited complaint: sore throat Related Data Home Medications Medication Instructions Recorded Confirmed omeprazole 40 mg capsule,delayed 40 mg PO DAILY 03/18/22 03/18/22 release ondansetron 4 mg disintegrating 4 mg PO PRN PRN Nausea 03/18/22 03/18/22 tablet sumatriptan succinate 50 mg tablet 50 mg PO PRN PRN Headache 03/18/22 03/18/22 Allergies Allergy/AdvReac Type Severity Reaction Status Date / Time amoxicillin Allergy Hives Verified 03/18/22 10:52 Review of Systems Review of Systems: Pertinent positives per HPI. Patient denies any fever, chills, rash, headache, visual changes, dizziness, cough, shortness of breath, chest pain, palpitations, nausea, vomiting, diarrhea, constipation, abdominal pain, or any urinary issues. PMFSH Comments At the time of my signature, I reviewed and agree with the nursing past medical, surgical, social, and family history. There is no relevant family history pertinent to the patient complaint. Exam Narrative: General: Well-developed, well nourished, in no apparent distress Head: Normocephalic, atraumatic Eyes: Pupils equally round and reactive to light bilaterally, EOM intact, sclera and conjunctive clear, no discharge, lids normal Ears: TMs intact and clear, ear canals clear, no drainage, grossly hearing normal. Nose: Nares patent, no discharge, no inflammation, no sinus tenderness. Mouth: Oral pharynx without lesions or masses, good dentition, MMM. Oropharynx red Neck: Supple, trachea midline, no enlargement of anterior or posterior cervical nodes, no thyroid masses or goiter palpable. Cardio: Regular rate and rhythm, s1 and s2 normal, no murmur appreciated. Resp: Clear to auscultation bilaterally, no rhonchi, rales, wheezing or rubs Course Course Emergency Course: Portions of this record may have been created with voice recognition software. Level of Care: Express Care Visit Vital Signs Vital signs: Vital Signs Temperature 37.4 C 03/18/22 10:33 Pulse Rate 105 H 03/18/22 10:33 Respiratory Rate 16 03/18/22 10:33 Blood Pressure 141/76 H 03/18/22 10:33 Pulse Oximetry 100 03/18/22 10:33 Oxygen Delivery Room Air 03/18/22 10:33 Temperature 37.4 C 03/18/22 10:33 Pulse Rate 105 H 03/18/22 10:33 Respiratory Rate 16 03/18/22 10:33 Blood Pressure 141/76 H 03/18/22 10:33 Pulse Oximetry 100 03/18/22 10:33 Oxygen Delivery Room Air 03/18/22 10:33 Vital signs reviewed MDM - URI/Sore Throat MDM Narrative Medical decision making narrative: At the time of visit patient is resting comfortably on the exam table. Strep screen was obtained Differential Diagnosis Differential diagnosis: Likely sinusitis, viral infection, influenza and pharyngitis Discharge Plan Discharge Clinical Impression: Pharyngitis Patient Disposition: Home, Self-Care Condition: Stable Instructions: Antibiotic Form, Pharyngitis (ED) Additional Instructions: Strep screen was negative in the clinic. We will send for culture Take prescription medications only as prescribed- viscous lidocaine Increase fluids and stay well hydrated Tylenol/motrin for pain/fever Flonase and OTC antihistamines as directed Vicks vapor rub to open sinuses Sinus rinses for congestion Cepacol spray, cough drops, thr
== END 2022-03-18 11:06 | disposition home or self-care (01) ==
PROVIDERS: Emergency Provider Nurse Practitioner Family; PCP Student in an Organized Health Care Education/Training Program
DX: J02.9 Acute pharyngitis, unspecified (principal); K21.9 Gastro-esophageal reflux disease without esophagitis
CPT/HCPCS: 87081; 87880; 99203; G0463

== ENCOUNTER 2024-04-21 15:43 | Outpatient (CLI) | payer BC, OTHER, SELFPAY ==
--- NOTE | ~2024-04-21 | US_ITS ---
EXAMINATION: US pelvic complete w TV DATE: 04/21/2024 16:07 INDICATION: Abnormal uterine and vaginal bleeding. TECHNIQUE: Multiple transabdominal and transvaginal sonographic images of the pelvis were obtained. COMPARISON: None. FINDINGS: TRANSABDOMINAL ULTRASOUND: The uterus measures 10.6 x 4.8 x 5.8 cm. There is no free fluid in the pelvis. TRANSVAGINAL ULTRASOUND: The endometrial complex measures 7 mm in thickness. The right ovary measures 3.3 x 2.6 x 2.7 cm. The left ovary measures 3.3 x 2.1 x 2.0 cm. There is normal vascular flow in the ovaries. IMPRESSION: 1. Normal pelvis. Reviewed, dictated and finalized at location A. IMPRESSION: 1. Normal pelvis.
== END 2024-04-21 15:44 ==
LOC: MICIMG 15:45
PROVIDERS: PCP Nurse Practitioner Family; Visit Provider Nurse Practitioner Family
DX: N93.9 Abnormal uterine and vaginal bleeding, unspecified (principal)
CPT/HCPCS: 76830; 76856

== ENCOUNTER 2024-06-13 00:39 | Day surgery (SDC) | payer BC, OTHER, SELFPAY ==
--- NOTE | 2024-06-02 17:15 | PC.NURSE ---
Report to the Outpatient Waiting Room, entrance under the green pavilion located off [facility], at time 0730 on date 06/13/24. Planned Procedure Time: 0730.? Time changes happen often and if your time is changed the preop area will call you the afternoon before. - You and your visitor will be asked to self-screen and do not enter if you have any COVID symptoms. Please call surgeon if you need to reschedule. - A mask is optional within the hospital at this time. Patients may have clear liquids (water, carbonated beverages, clear teas, apple juice) until 3 hours prior to surgery with a maximum of 20 ounces. 0630 - No food from midnight until time of surgery and no smoking - Infants may have breast milk until 4 hours before surgery, infant formula 6 hours prior to surgery. - Children will be allowed to drink immediately following surgery.? If applicable, please bring a bottle or sippy cup to assist with drinking. Juice, water, soda, and popsicles are readily available.? For infants on formula, please bring formula the day of surgery.? Pacifiers are allowed. Take only the following medications with a SIP of water on the morning of surgery: Immatrex, Zofran DO NOT STOP ANY OF YOUR OTHER PRESCRIPTION MEDICATIONS PRIOR TO SURGERY EXCEPT THE FOLLOWING Medications to discontinue per physician None Date to take last dose N/A Please no make-up, nail pashto, hairspray, perfume, deodorant, or body powder the day of surgery.? No jewelry (including any body piercings) or valuables the day of surgery, leave them at home.? Please take a shower or bath the night before, or the morning of, surgery with an antibacterial soap.? Wear comfortable, loose fitting clothing.? Children are encouraged to wear pajamas. - Jewelry must be removed prior to entering the operating room.? Rings and piercings that are not removed may be cut off. - The hospital will not accept responsibility for valuables.? - Please leave all valuables, including medications, at home the day of surgery. If you are going home after surgery, a licensed bung driver must drive you home.? - NO public transportation without another adult if you receive anesthesia. - We recommend that an adult stay with you for 24 hours following discharge. - We also recommend that you do not drive, make important decision, drink alcoholic beverages, or take any drugs that were not prescribed by your health care provider for at least 24 hours after your discharge time. For Pediatric surgeries, we recommend two adults accompany the child home. Follow any additional instructions given to you from your surgeon. Telephone instructions given to Bebo Mahajan- Patient and asked if any additional questions and then verbalized understanding. Patient advised to call surgeon office or pre surgery nurse liaison [phone] if any additional questions.
[2024-06-02 17:19] VITALS: BMI 29.7
[2024-06-13 11:00] VITALS: BP 138/72; PULSE 74; RESP 18; TEMP 36.3; O2SAT 99
[2024-06-13 11:31] VITALS: BMI 41.4
[2024-06-13] MEDS: LACTATED RINGERS 1,000 ML 30 ML IV CONT (11:50)
[2024-06-13] MEDS: ACETAMINOPHEN 500 MG TABLET 1000 MG PO (11:57)
--- NOTE | 2024-06-13 12:56 | P.PNAN_ITS ---
Anes - Initial Pre Proc Eval Procedure: Operation Date: 06/13/24 13:30 Proposed Procedures p Hysteroscopy Dilation and Curettage with Rachel Endometrial Ablation - Kennedy Moss MD Date/Time: 06/13/24 12:56 Surgeon: Kennedy Moss MD Pre Op Diagnosis: Thickened Endometrium, Endometrial Polyp Patient Data Age: 48 Gender: F Height: 1.7 m Weight: 120.1 kg Allergies Allergy/AdvReac Type Severity Reaction Status Date / Time amoxicillin Allergy Hives Verified 06/02/24 17:08 Home Medications Medication Instructions Recorded Confirmed Type ondansetron HCl 8 mg tablet 8 mg PO Q12H 04/14/24 06/02/24 History sumatriptan succinate 50 mg tablet See Rx Instructions PO .COMPLEX 04/14/24 06/02/24 History (Imitrex) Patient hx anesthesia problems: none Family hx anesthesia problems: none Results Review: All pre-operative results and documents have been reviewed as part of the pre- operative evaluation. [facility] Past Medical History Medical History (Updated 06/13/24 @ 12:56 by Cholo Cartagena MD) Bronchitis COVID-19 (~08/2020) Morbid obesity Surgical History Surgical History History of appendectomy History of laparoscopic cholecystectomy (~05/2006) History of shoulder surgery (~06/2002) History of tubal ligation Family History Family History Father Cancer Social History Social History Social History: Lives in [place] with her 18-year-old son. She works at the [employer] in [place]. Lifelong nonsmoker. Drinks perhaps 2 alcoholic beverages a week. No illicit substance use. she designates her boyfriend, Twan Rivers, as her surrogate decision maker and she wishes to be a full code. Smoking status: Never smoker Alcohol intake: current Drinks per week: 2 Spiritual care concerns: No Anes - Eval Final PreProcedure Day of Procedure 06/13/24 12:56 Patient weight: morbidly obese Heart: regular rate and rhythm Lungs: clear to auscultation Airway: Mallampati scale class II Neurological: alert and oriented Last oral intake: >/= 8 hours ASA classification: III Emergent: no Anesthetic plan: proceed Anesthesia type and monitoring: general GIVS and standard monitoring Results Review: All pre-operative results and documents have been reviewed as part of the pre- operative evaluation. Informed Consent: The patient's anesthetic plan and its attendant risks and benefits were discussed with the patient/family/POA. Questions were solicited and answers provided to the satisfaction of the patient/family/POA.
--- NOTE | 2024-06-13 12:59 | WPDHPUPDATE1 ---
History and Physical Update Update Date/Time: 06/13/24 12:59 History and Physical has been reviewed, including an updated exam of the patient. There are NO changes in the patient's condition. Risks, benefits, and alternatives have been discussed and questions answered. Patient agrees to proceed with procedure.
[2024-06-13] MEDS: ceFAZolin 3 GM/D5W 100 ML 100 ML IVPB (13:34)
[2024-06-13 13:51] LABS: BEDSIDEPREGUCG Negative (Negative)
[2024-06-13] MEDS: LIDOCAINE HCL 1% LOCAL INJ 20 ML VIAL 10 ML INFILTRATE (13:53)
[2024-06-13 14:10] VITALS: BP 101/59; PULSE 89; RESP 14; O2SAT 99
--- NOTE | 2024-06-13 14:14 | P.OP_ITS ---
Procedure Note - Detailed Date of Procedure 06/13/24 Pre-op Diagnosis Thickened Endometrium, Endometrial Polyp Post-op Diagnosis Same Procedure Performed 1. Rachel endometrial ablation 2. hysteroscopic removal of endometrial polyp and dilation and curettage Surgeon Kennedy Moss MD Anesthesia MAC and Local Indications heavy bleeding and endometrial polyp on biopsy Findings uterus sound to 9 cm cervical length 4 cm uterine cavity there was an endome trial polyp at the superior anterior uterine near the fundus and a small polyp lateral the rest of the cavity was normal. Description of Procedure After informed consent was obtained patient was taken to the operating room and adequate IV sedation was administered. Attention was turned to the vagina. Speculum was inserted. Single-tooth tenaculum placed on the anterior lip of the cervix. 10 cc of 1% lidocaine was injected at the cervical vaginal interface at the 2, 5, 8, and 10 position. The uterus was sounded to 9 cm. The cervix was dilated to an 8 Bartlett dilator. The cervical length was 4 cm. The hysteroscope was inserted into the cavity. the endometrial polyp was visualized. Using the Aveta instrument the polyp was removed completely there was a smaller polyp to the right this was removed. A curettage was then performed. The hysteroscope was removed. The Rachel ablation instrument was inserted into the cavity. Cavity assessment was performed and confirmed intact. The device did not started the ablation this was attempted twice and then a new device was obtained. The ablation was enabled. After 120 seconds the Rachel stopped. The ablation instrument was removed. The hysteroscope was inserted and there was noted to be good eschar with the cavity. The hysteroscope was removed the single-tooth tenaculum was removed hemostasis was noted at the tenaculum site. Sponge count correct. The patient taken to recovery in stable condition. Estimated Blood Loss 5 Drains No Packing No Pathology Yes ( endometrial curettings and shavings) Complications No immediate complications Condition Stable Disposition Same day [facility] Billing Surgery - Charge Forward: Surgery Billing
[2024-06-13 14:40] VITALS: BP 112/66; PULSE 70; RESP 14; O2SAT 99
[2024-06-13] MEDS: oxyCODONE HCL (*CRX) 5 MG TAB IR PO (14:44)
[2024-06-13] MEDS: fentaNYL CITRATE INJ (*CRX) 100 MCG/2 ML VIAL 25 MCG IV PUSH (14:44)
== END 2024-06-13 15:10 | disposition home or self-care (01) ==
PROVIDERS: PCP Student in an Organized Health Care Education/Training Program; Visit Provider Obstetrics & Gynecology
PROC: 0U5B8ZZ Destruction of Endometrium, Via Natural or Artificial Opening Endoscopic (ICD-10-PCS; CPT 58563; principal; 2024-06-13 13:30)
DX: R93.89 Abnormal findings on diagnostic imaging of other specified body structures (principal); N84.0 Polyp of corpus uteri; E66.01 Morbid (severe) obesity due to excess calories; Z68.41 Body mass index [BMI] 40.0-44.9, adult; Z98.890 Other specified postprocedural states; Z90.49 Acquired absence of other specified parts of digestive tract; Z98.51 Tubal ligation status; Z80.9 Family history of malignant neoplasm, unspecified
CPT/HCPCS: 58563; 88305; A9270; J0690; J2003; J2250; J2704; J3010; J7120

== ENCOUNTER 2024-12-07 19:14 | Emergency (ER) | payer BC, OTHER, SELFPAY ==
[2024-12-07 19:16] VITALS: BP 137/67; PULSE 107; RESP 18; TEMP 37.1; O2SAT 100
--- NOTE | 2024-12-07 19:18 | ED.URI ---
HPI - URI/Sore Throat General Chief Complaint: Upper Respiratory Infection Stated Complaint: cough,chest tight Time Seen by Provider: 12/07/24 19:18 Source: patient Mode of arrival: ambulatory Limitations: no limitations History of Present Illness HPI Narrative: Bebo is a 49-year-old female patient presenting to the clinic today with complaints of cough and chest tightness. She reports symptoms started 2 days ago. No known fevers, chills, or body aches. Does have sinus drainage going in the back of her throat. History of bronchitis and pneumonia in the past. She is a nonsmoker. Is coughing up some yellow phlegm at times. Related Data Home Medications ?Medication ?Instructions ?Recorded ?Confirmed ?Last Taken ?Type sumatriptan succinate 50 mg tablet See Rx Instructions PO .COMPLEX 04/14/24 06/02/24 Unknown History (Imitrex) Allergies Allergy/AdvReac Type Severity Reaction Status Date / Time amoxicillin Allergy Hives Verified 12/07/24 19:25 Review of Systems Review of Systems: Pertinent positives per HPI. Patient denies any fever, chills, rash, headache, visual changes, dizziness, palpitations, nausea, vomiting, diarrhea, constipation, abdominal pain, or any urinary issues. [facility] Past Medical History Medical History Bronchitis COVID-19 (~08/2020) Morbid obesity Surgical History Surgical History History of shoulder surgery (~06/2002) History of tubal ligation History of appendectomy History of laparoscopic cholecystectomy (~05/2006) Family History Family History Father Cancer Social History Social History Social History: Lives in [place] with her 18-year-old son. She works at the [employer] in [place]. Lifelong nonsmoker. Drinks perhaps 2 alcoholic beverages a week. No illicit substance use. she designates her boyfriend, Twan Rivers, as her surrogate decision maker and she wishes to be a full code. Smoking status: Never smoker Alcohol intake: current Drinks per week: 2 Spiritual care concerns: No Comments At the time of my signature, I reviewed and agree with the nursing past medical, surgical, social, and family history. There is no relevant family history pertinent to the patient complaint. Exam Narrative: General: Well-developed, morbidly obese, in no apparent distress Head: Normocephalic, atraumatic Eyes: Pupils equally round and reactive to light bilaterally, EOM intact, sclera and conjunctive clear, no discharge, lids normal Ears: TMs intact and clear, ear canals clear, no drainage, grossly hearing normal. Nose: Nares patent, clear nasal drainage discharge, no inflammation, no sinus tenderness. Mouth: Oral pharynx without lesions or masses, good dentition, MMM. Neck: Supple, trachea midline, no enlargement of anterior or posterior cervical nodes, no thyroid masses or goiter palpable. Cardio: Regular rate and rhythm, s1 and s2 normal, no murmur appreciated. Resp: Lung sounds diminished in the bases otherwise clear, no rhonchi, rales, wheezing or rubs Course Course Emergency Course: Portions of this record may have been created with voice recognition software. Level of Care: Express Care Visit Vital Signs Vital signs: Vital Signs Temperature 37.1 C 12/07/24 19:16 Pulse Rate 107 H 12/07/24 19:16 Respiratory Rate 18 12/07/24 19:16 Blood Pressure 137/67 12/07/24 19:16 Pulse Oximetry 100 12/07/24 19:16 Oxygen Delivery Room Air 12/07/24 19:16 Temperature 37.1 C 12/07/24 19:16 Pulse Rate 107 H 12/07/24 19:33 Respiratory Rate 18 12/07/24 19:33 Blood Pressure 137/67 12/07/24 19:16 Pulse Oximetry 100 12/07/24 19:33 Oxygen Delivery Room Air 12/07/24 19:16 Vital signs reviewed MDM - URI/Sore Throat MDM Narrative Medical decision making narrative: At the time of visit patient is resting comfortably on the exam table. Patient appears to be nontoxic. Medications: DuoNeb treatment was given in the clinic today-patient's coughing and chest tightness improved-has better aeration Plan: I suspect patient has URI with cough and congestion and bronchitis. Breathing improved after breathing treatment. Prescription for albuterol inhaler, prednisone, Tessalon Perles was sent to the pharmacy. Supportive measures were discussed with the patient and they voiced understanding discharge instructions and agrees to treatment plan. Return precautions reviewed Differential Diagnosis Differential diagnosis: Likely upper respiratory infection, otitis media, sinusitis, viral infection, bronchitis, influenza, pharyngitis and other (COVID) Discharge Plan Discharge Clinical Impression: Bronchitis, Upper respiratory infection with cough and congestion Patient Disposition: Home Condition: Stable Instructions: Antibiotic Form, Acute Bronchitis (ED), Cold Symptoms (ED) Additional Instructions: DuoNeb treatment given in the clinic today. Take prescription medications only as prescribed-albuterol inhaler, prednisone, and Tessalon Perles Increase fluids and stay well hydrated Tylenol/motrin for pain/fever Flonase and OTC antihistamines as directed Vicks vapor rub to open sinuses Sinus rinses for congestion Cepacol spray, cough drops, throat lozenges, warm tea with honey/lemon, gargle salt water to soothe throat BRAT diet for diarrhea Clear liquids x 24 hours then advance as tolerated for nausea/vomiting Go to the ED if you develop a worsening in your condition- high fever not controlled by Tylenol or Motrin, dehydration, weakness, lethargy, shortness of breath, or chest pain. Follow up with your PCP in 3-5 days if symptoms persist. Patient Language: Ugandan Prescriptions: New benzonatate 200 mg capsule 200 mg PO TID 7 Days Qty: 21 0RF prednisone 20 mg tablet 40 mg PO DAILY 5 Days Qty: 10 0RF albuterol sulfate 90 mcg/actuation HFA aerosol inhaler 2 puff inhalation Q4-6H PRN (Reason: shortness of breath or wheezing) 30 Days Qty: 8.5 0RF No Action sumatriptan succinate [Imitrex] 50 mg tablet See Rx Instructions PO .COMPLEX Rx Instructions: take 1 tab at onset of headache; if no relief may repeat 1 tab after at least 2 hrs; max = 4 tabs/24 hr PO Follow-up/Referrals: Arnulfo,DO Grupo [Primary Care Provider] - Stand Alone Forms: Work/School Release IP Time of Disposition: 19:35 Quality NIHSS Nursing Documentation ED NIHSS nursing documentation: reviewed/agree
[2024-12-07 19:33] VITALS: PULSE 107; RESP 18; O2SAT 100
[2024-12-07] MEDS: IPRATROPIUM 0.5 MG/ALBUTEROL SULFATE 2.5 MG AMPUL.NEB 3 ML INHALATION (19:42)
== END 2024-12-07 20:00 | disposition home or self-care (01) ==
PROVIDERS: Emergency Provider Nurse Practitioner Family; PCP Student in an Organized Health Care Education/Training Program
DX: J40 Bronchitis, not specified as acute or chronic (principal); J06.9 Acute upper respiratory infection, unspecified; R05.9 Cough, unspecified; E66.01 Morbid (severe) obesity due to excess calories; Z68.38 Body mass index [BMI] 38.0-38.9, adult; Z86.16 Personal history of COVID-19
CPT/HCPCS: 94640; 99213; A4565; G0463